=== PATIENT | male | born 1975 | race Caucasian/White ===

== ENCOUNTER 2016-06-23 19:40 | Emergency (ER) | payer OTHER ==
[~2016-06-23] VITALS: Ht 182.9 cm; Wt 74.8 kg
[2016-06-23 19:53] VITALS: BP 140/100
== END 2016-06-23 20:52 | disposition left against medical advice (07) ==
LOC: ER 19:40
DX: Z53.21 Procedure and treatment not carried out due to patient leaving prior to being seen by health care provider (principal)
CPT/HCPCS: A4606; Z7610

== ENCOUNTER 2016-06-24 00:01 | Emergency (ER) | payer OTHER ==
[~2016-06-24] VITALS: Ht 182.9 cm; Wt 74.8 kg
[2016-06-24 00:10] VITALS: BP 144/103
[2016-06-24] MEDS ORDERED: KETOROLAC TROMETHAMINE 15 MG/ML VIAL ONE (01:57)
[2016-06-24] MEDS ORDERED: LIDOCAINE 2% JEL 5 ML TUBE ONE (01:58)
[2016-06-24] MEDS ORDERED: KETOROLAC TROMETHAMINE INJ 30 MG/ML VIAL IM ONE (02:00)
[2016-06-24] MEDS ORDERED: LIDOCAINE 2% JEL 5 ML TUBE MC ONE (02:00)
[2016-06-24] MEDS ORDERED: LIDOCAINE VISCOUS 2% UD 15 ML UDC MM ONE (02:00)
== END 2016-06-24 02:20 | disposition home or self-care (01) ==
LOC: ER 00:01
DX: K64.4 Residual hemorrhoidal skin tags (principal); Z88.0 Allergy status to penicillin
CPT/HCPCS: 96372; 99283; A4606; J1885; Z7610